=== PATIENT | female | born 1960 | race Caucasian/White ===

== ENCOUNTER 2024-03-02 15:25 | Emergency (ER) | payer MEDICARE | END 2024-03-02 17:20 | disposition home or self-care (01) | LOC: CSHERS 15:25 | DX: M79.671 Pain in right foot (principal); M79.89 Other specified soft tissue disorders; W18.09XA Striking against other object with subsequent fall, initial encounter; Y93.89 Activity, other specified | CPT/HCPCS: 99283 ==

== ENCOUNTER 2024-04-11 07:54 | Outpatient (CLI) | payer MEDICARE | END 2024-04-11 07:55 | disposition home or self-care (01) | LOC: CSHMAMMO 07:54 | PROVIDERS: ATTEND Internal Medicine | DX: Z12.31 Encounter for screening mammogram for malignant neoplasm of breast (principal); Z91.89 Other specified personal risk factors, not elsewhere classified | CPT/HCPCS: 77063; 77067 ==